=== PATIENT | female | born 1995 | race Caucasian/White ===

== ENCOUNTER → 2018-08-02 | Outpatient (CLI) | payer BC ==
[2018-08-02 09:59] LABS: Basophils # (A) 0.1 k/uL (0-0.2); Basophils % (A) 1 %; Eosinophils # (A) 0.1 k/uL (0-0.7); Eosinophils % (A) 1 %; HCT 42.2 % (34.0-46.0); HGB 13.8 gm/dL (11.4-16.0); Lymphocytes # (A) 2.8 k/uL (1.0-4.8); Lymphocytes % (A) 35 %; MCHC 32.7 g/dL (31.0-37.0); MCV 85.6 fL (80.0-100.0); Monocytes # (A) 0.4 k/uL (0-1.0); Monocytes % (A) 5 %; Neutrophils # (A) 4.4 k/uL (1.3-7.7); Neutrophils % (A) 55 %; Platelet Count 267 k/uL (150-450); RBC 4.92 m/uL (3.80-5.40); WBC 7.9 k/uL (3.8-10.6)
[2018-08-02 10:12] LABS: Anion Gap 8 mmol/L; Blood Urea Nitrogen 10 mg/dL (7-17); Calcium 9.2 mg/dL (8.4-10.2); Carbon Dioxide 27 mmol/L (22-30); Chloride 107 mmol/L (98-107); Glucose 98 mg/dL (74-99); Potassium 3.8 mmol/L (3.5-5.1); Sodium 142 mmol/L (137-145)
[2018-08-02 10:16] LABS: Appearance,Urine Cloudy (Clear); Bacteria,Urine Few /hpf; Bilirubin,Urine Negative (Negative); Blood,Urine Trace (Negative); Color,Urine Yellow; Glucose,Urine (UA) Negative (Negative); Ketones,Urine Negative (Negative); Leukocyte Esterase,Urine Large (Negative); Mucus,Urine Many /hpf; Nitrite,Urine Negative (Negative); Protein,Urine 1+ (Negative); RBC,Urine 16 /hpf (0-5); Specific Gravity,Urine 1.013 (1.001-1.035); Squamous Epithelial Cell,Urine 5 /hpf (0-4); Urobilinogen,Urine <2.0 mg/dL (<2.0); WBC,Urine >182 /hpf (0-5)
== END | disposition home or self-care (01) ==
LOC: LABPAT 09:35
PROVIDERS: ATTEND Urology
DX: Z01.812 Encounter for preprocedural laboratory examination (principal); R31.29 Other microscopic hematuria; N13.1 Hydronephrosis with ureteral stricture, not elsewhere classified
CPT/HCPCS: 36415; 80048; 81001; 81025; 85025; 87086

== ENCOUNTER 2018-08-08 12:26 | Observation (INO) | payer BC ==
--- NOTE | 2018-08-07 10:21 | P.GSHP ---
History of Present Illness H&P Date: 08/07/18 22 yo with chronic left flank pain, a congenital upj obstruction and a left renal stone She comes for a robotic assisted laparoscopic pyeloplasty and pyelolithotomy by Dr Perry Alternatives have been discussed SHe comes for this procedure - Constitutional Constitutional: Denies chills, Denies fever - EENT Eyes: denies blurred vision, denies pain Ears, nose, mouth and throat: Denies headache, Denies sore throat - Cardiovascular Cardiovascular: Denies chest pain, Denies shortness of breath - Respiratory Respiratory: Denies cough, Denies 7 - Gastrointestinal Gastrointestinal: Denies abdominal pain, Denies diarrhea, Denies nausea, Denies vomiting - Genitourinary (Female) Genitourinary: Denies dysuria, Denies hematuria - Genitourinary (Male) Genitourinary: Denies dysuria, Denies hematuria - Musculoskeletal Musculoskeletal: Denies myalgias - Integumentary Integumentary: Denies pruritus, Denies rash - Neurological Neurological: Denies numbness, Denies weakness - Psychiatric Psychiatric: Denies anxiety, Denies depression - Endocrine Endocrine: Denies fatigue, Denies weight change Past Medical History Past Medical History: No Reported History History of Any Multi-Drug Resistant Organisms: None Reported Additional Past Surgical History / Comment(s): [place] teeth extracted. Past Anesthesia/Blood Transfusion Reactions: No Reported Reaction Past Psychological History: No Psychological Hx Reported Smoking Status: Never smoker Past Alcohol Use History: Occasional Past Drug Use History: None Reported - Past Family History Mother Family Medical History: No Reported History Medications and Allergies Home Medications Medication Instructions Recorded Confirmed Type Control Pill 1 tab PO QAM 08/06/18 08/06/18 History Allergies Allergy/AdvReac Type Severity Reaction Status Date / Time No Known Allergies Allergy Verified 08/06/18 09:09 Surgical - Exam - General well developed, well nourished, no distress - Eyes PERRL - ENT no hearing loss - Neck trachea midline - Respiratory normal expansion, normal respiratory effort - Cardiovascular Rhythm: regular - Abdomen Abdomen: soft, non tender - Integumentary no rash, no growths - Neurologic normal coordination, normal sensation - Musculoskeletal normal gait, normal posture - Psychiatric oriented to time, oriented to person, oriented to place, speech is normal, memory intact
[~2018-08-08 12:26] MED LIST: DEXAMETHASONE SOD PHOSPHATE 10 MG/ML 1 ML VIAL IV ONE; LIDOCAINE 1% 20 ML VIAL (10MG/ML) FOR IV START INTRADERMA PRN; MIDAZOLAM 2 MG/2 ML VIAL IV PRN; ONDANSETRON 4 MG/2 ML VIAL IVP ONE; ceFAZolin IN SWFI 2 GM/20 ML SYRINGE IVP ONE; fentaNYL (PF) 50 MCG/ML 2 ML AMP IV PRN
[2018-08-08] MEDS: LACTATED RINGERS 1,000 ML IV SCH (13:19)
[2018-08-08] MEDS ORDERED: LIDOCAINE 1% INJ 10MG/ML (20 ML MDV) ONE (15:41)
[2018-08-08] MEDS ORDERED: MIDAZOLAM 2 MG/2 ML VIAL ONE (15:41)
[2018-08-08] MEDS ORDERED: NEOSTIGMINE 1 MG/ML 10 ML VIAL ONE (15:41)
[2018-08-08] MEDS ORDERED: PROPOFOL 10 MG/ML 20 ML VIAL IV ONE (15:41)
[2018-08-08] MEDS ORDERED: fentaNYL (PF) 50 MCG/ML 2 ML AMP ONE (15:41)
[2018-08-08] MEDS ORDERED: GLYCOPYRROLATE 0.2 MG/ML 2 ML VIAL ONE (15:41)
[2018-08-08] MEDS ORDERED: SUCCINYLCHOLINE CHLORIDE 100 MG/5 ML SYR IV ONE (15:41)
[2018-08-08] MEDS ORDERED: HYDROmorphone (PF) 1 MG/ML ONE (15:41)
[2018-08-08] MEDS ORDERED: ROCURONIUM BROMIDE 10 MG/ML 10 ML VIAL IV ONE (15:41)
[2018-08-08] MEDS ORDERED: ONDANSETRON 4 MG/2 ML VIAL ONE (15:41)
[2018-08-08] MEDS ORDERED: LACTATED RINGERS 1,000 ML IV ONE (16:30)
[2018-08-08] MEDS ORDERED: BUPIVACAINE (PF) 0.25% 30 ML VIAL SQ ONE ×2 (17:42→18:26)
[2018-08-08] MEDS ORDERED: ACETAMINOPHEN TAB 325 MG TAB PO PRN (18:30)
--- NOTE | 2018-08-08 18:53 | P.OP ---
Date of Procedure: 08/08/18 Preoperative Diagnosis: Left UPJ obstruction, left renal calculus Postoperative Diagnosis: Same Procedure(s) Performed: Robotic-assisted laparoscopic left dismembered pyeloplasty, intraoperative left ureteroscopy with stone basket retrieval. Anesthesia: AMOR Surgeon: Mars Perry Sheet Metal Roofer #1: Lamont Beltran Estimated Blood Loss (ml): 20 IV fluids (ml): 1,100 Condition: stable Disposition: PACU Indications for Procedure: The patient is a 23-year-old white female who presented with left flank pain. She was found to have left hydronephrosis due to left UPJ obstruction. The computed tomography scan also showed a 1 cm left renal pelvic calculus. Alternative treatment options were reviewed with her in detail, and she elected to undergo a laparoscopic pyeloplasty with removal of renal calculus. Operative Findings: 1) High insertion of left ureter into the renal pelvis. 2) 1 cm calculus located within a lower pole calyx. Description of Procedure: After informed consent was received and confirmation of preop antibiotics, the patient was brought back to the operating room. A 16 Fr carpenter catheter was placed. After induction of orotracheal general anesthesia,the patient was placed on a gel pad in the full flank position. The patient was placed and the table was broken in mild flexion. All pressure points were padded, axillary roll was placed as well as proper leg positioning for the flank position. We then taped the patient into position making sure that the patient was completely secured onto the table. After prepping and draping in the usual sterile fashion, Veress needle was used to gain abdominal insufflation. After abdominal insufflation to 20 mm Hg, a 12mm camera port followed by two 8 mm robotic arms and a 12 mm periumbilical embalmer assistant port were placed without difficulty. The robot was docked into place. The left colon was mobilized medially along the white line of Toldt and the tail of gerota's fascia was identified anterior to the psoas minor tendon. The ureter and gonadal vessels were then identified and the ureter was traced up to the level of the renal pelvis. The renal pelvis was considerably dilated and the UPJ revealed narrowing of the ureter with a high insertion point into the renal pelvis. There was no crossing vessel. The renal pelvis and proximal ureter were dissected with precision and the blood supply of the proximal ureter was preserved. A decision was made to perform an Bradley-Jaxosn pyeloplasty. The renal pelvis was cut and reduced using scissors and a lateral ureterotomy was made along the lateral part of the proximal ureter. The Olympus flexible ureteroscope was passed through the embalmer assistant port, and it was carefully guided into the left renal pelvis. Each calyx was examined. The calculus was located within a lower pole calyx. A nitinol basket was used to grasp the calculus, which was then removed intact. A double-armed 4-0 V-Loc suture was carefully placed through the dependent portion of the open renal pelvis. The sutures were then carefully placed through the apex of the spatulated ureter, and the posterior limb of the anastomosis was then performed in a running fashion with care taken to achieve a mucosa to mucosa, watertight anastomosis. Next, a 0.035 inch Glidewire was passed through the embalmer assistant port and guided into the ureter. It was advanced down the ureter well beyond a [place] made on the right ureter at 25 cm. A 6 Fr x 26 cm double-J stent was then passed over the wire and down the ureter. Once the stent was successfully placed, the anterior limb of the anastomosis was closed in a similar running fashion. The remaining opening in the renal pelvis was closed, thus achieving an anastomosis which appeared watertight and tension-free. Hemostasis was excellent. Next a flat MAUREEN margret was placed in the bed of the renal pelvis and secured to the skin using #2-0 nylon suture. Robotic instruments were removed and the robot was de-docked. The abdomen was surveyed using the camera and the ports were removed under vision. Fascia on the two 12 mm ports was closed with #0 vicryl suture, using the Cy-Tyler suture passer under camera vision. Skin was closed with subcuticular 4-0 Monocryl and Dermabond. All instrument, sponge and needle counts were noted to be correct. Patient was awoken up from anesthesia and taken to the recovery room in a stable condition after extubation.
[2018-08-08] MEDS: HYDROmorphone 1 MG/ML 1 ML SYRINGE IVP PRN ×3 (18:54→20:46)
[2018-08-08] MEDS: DEXTROSE 5%-0.45% NACL 1,000 ML IV SCH (20:09)
[2018-08-08] MEDS: HEPARIN SODIUM,PORCINE 5,000 UNIT/ML 1 ML VIAL SQ SCH (20:10)
[2018-08-09] MEDS: HYDROmorphone 1 MG/ML 1 ML SYRINGE IVP PRN ×2 (03:52→06:54)
[2018-08-09] MEDS: DEXTROSE 5%-0.45% NACL 1,000 ML IV SCH ×2 (03:56→14:32)
[2018-08-09] MEDS ORDERED: BIRTH CONTROL PILL PO SCH (09:00)
[2018-08-09] MEDS: LACTATED RINGERS 1,000 ML IV SCH (09:59)
[2018-08-09] MEDS: HEPARIN SODIUM,PORCINE 5,000 UNIT/ML 1 ML VIAL SQ SCH (10:00)
[2018-08-09] MEDS: KETOROLAC 30 MG/ML 1 ML VIAL IVP PRN ×2 (10:17→16:27)
[2018-08-09 12:26] VITALS: PULSE 100
[2018-08-09 14:21] VITALS: BMI 36.6
--- NOTE | 2018-08-09 14:51 | P.DS ---
Providers Date of admission: 08/09/18 09:23 Expected date of discharge: 08/09/18 Attending physician: Mars Perry Primary care physician: Trent Kelly Hospital Course: On the day of admission, the patient underwent an uncomplicated robotic assisted laparoscopic left dismembered pyeloplasty. A renal calculus was removed at that time. The postoperative course was unremarkable. She remained afebrile with stable vital signs. On the first postoperative day, MAUREEN drainage was minimal and the Leon catheter was draining clear yellow urine. She was ambulating and tolerating diet. She reported her pain is being mild in severity , and she had no complaints. Procedures: Robotic-assisted laparoscopic left dismembered pyeloplasty with removal of left renal calculus on 08/08/2018. Patient Condition at Discharge: Good Plan - Discharge Summary Discharge Rx Participant: No New Discharge Prescriptions: New Ketorolac [Toradol] 10 mg PO Q6HR #12 tab No Action Norethindrone-E.estradiol-Iron [Junel Fe 1 mg-20 Mcg Tablet] 1 tab PO DAILY Discharge Medication List Ketorolac [Toradol] 10 mg PO Q6HR #12 tab 08/09/18 [Rx] Norethindrone-E.estradiol-Iron [Junel Fe 1 mg-20 Mcg Tablet] 1 tab PO DAILY [History] Follow up Appointment(s)/Referral(s): Abdulaziz Mayorga MD [STAFF PHYSICIAN] - 10 Days Activity/Diet/Wound Care/Special Instructions: Diet as tolerated. Drink plenty of fluids. Reassure patient that hematuria is common in patients with ureteral stents. Okay to shower on 08/11/2018. No driving for 1 week. No strenuous activity for 6 weeks. Discharge Disposition: HOME SELF-CARE
[2018-08-09 16:43] VITALS: BP 118/83; RESP 20; TEMP 97.4
== END 2018-08-09 16:47 | disposition home or self-care (01) ==
LOC: OR 12:26 → 6PED 18:26 → OR 08-09 09:23 → 6PED 08-09 09:23
PROVIDERS: ADMIT Urology; ATTEND Urology
DX: N13.2 Hydronephrosis with renal and ureteral calculous obstruction (principal); N13.5 Crossing vessel and stricture of ureter without hydronephrosis; Q62.39 Other obstructive defects of renal pelvis and ureter; Z79.3 Long term (current) use of hormonal contraceptives
CPT/HCPCS: 81025; 82365; 50544; 50945; 52332; G0378; C2625; C1769; J2250; J1644 ×2; J1100; J2710; J2405; J2001; J3010; J1885; J1170 ×2; J0330; J2704; J0690; 88305

== ENCOUNTER → 2018-10-29 | Outpatient (CLI) | payer BC ==
--- NOTE | 2018-10-29 11:07 | XR ---
EXAMINATION TYPE: XR IVP DATE OF EXAM: 10/29/2018 COMPARISON: None HISTORY: Left UPJ obstruction with history of resection with stone removal TECHNIQUE: Stereo Compiler view was obtained. Following the contrast administration of 100 mL Isovue-370 sequen tial overhead radiographs were obtained. Oblique views and prone views and upright views were obtaine d. FINDINGS: Stereo Compiler view was noncontributory. There is prompt uptake and excretion of the contrast throug h the kidneys. Right kidney: Renal calyces and infundibulum and renal pelvis is normal. Ureter follows a normal mahogany chip course and contour to the urinary bladder. Left kidney: There is moderate left hydronephrosis. There is some delay of contrast excretion into th e left renal pelvis. There is marked dilatation of the left renal pelvis. The left ureteral pelvic ju nction is identified with small caliber ureter as visualized. Mid ureter has a more normal caliber. D istal ureter appears normal where visualized on the prone view. There continues to be delayed excreti on on the left. Urinary bladder fills normally without intraluminal or extramural defect. IMPRESSION: 1. Moderate to marked left hydronephrosis with some delay of excretion through the renal collecting system. The left ureterovesical junction may be stenotic.
== END ==
LOC: RADFLMAIN 08:35
PROVIDERS: ATTEND Urology
DX: N13.30 Unspecified hydronephrosis (principal); Z88.0 Allergy status to penicillin
CPT/HCPCS: 74400; Q9967